=== PATIENT | male | born 1965 | race Caucasian/White ===

== ENCOUNTER 2023-12-09 20:10 | Emergency (ER) | payer BC ==
[2023-12-09 20:16] VITALS: BP 171/80; PULSE 90; RESP 18; TEMP 98
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
--- NOTE | 2023-12-09 20:39 | XR ---
EXAMINATION TYPE: XR Hip RT and AP Pelvis DATE OF EXAM: 12/09/2023 8:33 PM CLINICAL INDICATION:Male, 58 years old with history of fall injury; [facility] COMPARISON: None. TECHNIQUE: XR Hip RT and AP Pelvis; hip was examined in the frontal and lateral projections and a AP pelvis. FINDINGS: No evidence for acute process, joint dislocation or significant soft tissue swelling. Osteo phyte formation of the superior acetabulum of the hip. There is mild joint space narrowing. IMPRESSION: 1. No evidence for acute process. 2. Mild hip osteoarthrosis.
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
== END 2023-12-09 22:37 | disposition home or self-care (01) ==
LOC: EC 20:10
DX: S70.01XA Contusion of right hip, initial encounter (principal); V18.0XXA Pedal cycle driver injured in noncollision transport accident in nontraffic accident, initial encounter; Y93.55 Activity, bike riding
CPT/HCPCS: 73502; 99283